=== PATIENT | male | born 1980 | race Two or more races ===

== ENCOUNTER 2021-12-25 10:12 | Emergency (ER) | payer SELFPAY ==
[~2021-12-25] VITALS: Ht 177.8 cm; Wt 100.0 kg
[2021-12-25 10:13] VITALS: BP 191/145
[2021-12-25] MEDS ORDERED: cloNIDine HCL 0.1 MG TAB PO ONE (11:30)
[2021-12-25 11:51] LABS: Eosinophils # (auto) 0.4 10 ^3/uL (0-0.8); Lymphocytes # (auto) 2.6 10 ^3/uL (0.4-5.4); Monocytes # (auto) 0.6 10 ^3/uL (0-1.3); Monocytes % (auto) 4.9 % (0.0-12.0); Red Cell Distribution Width 14.4 % (11.8-14.3); White Blood Cell 12.9 10^3/uL (4.4-10.8)
[2021-12-25 11:54] LABS: Basophils # (auto) 0.2 10 ^3/uL (0-0.2); Basophils % (auto) 1.4 % (0.0-2.0); Hemoglobin 18.5 g/dL (13.5-17.5); Lymphocytes % (auto) 20.3 % (10.0-50.0); Mean Corpuscular Hemoglobin 29.3 pg (28.0-32.0); Mean Corpuscular Hgb Conc. 33.6 g/dL (32.0-36.0); Mean Corpuscular Volume 87.1 fL (80.0-100.0); Neutrophils # (auto) 9.1 10 ^3/uL (1.6-8.6); Neutrophils % (auto) 70.4 % (37.0-80.0); Nucleated Red Blood Cells % 0.3 %; Red Blood Cells 6.32 10^6/uL (4.5-5.90)
[2021-12-25 12:15] LABS: Calcium 9.8 mg/dL (8.5-10.1); Potassium 4.7 mmol/L (3.5-5.1)
[2021-12-25 12:19] LABS: BUN/Creatinine Ratio 10.6; Bilirubin, Total 0.4 mg/dL (0.2-1.0); Total Protein 8.7 g/dL (6.4-8.2)
== END 2021-12-25 13:58 | disposition left against medical advice (07) ==
LOC: ER 10:12
DX: I16.0 Hypertensive urgency (principal); Z53.29 Procedure and treatment not carried out because of patient's decision for other reasons
CPT/HCPCS: 36415; 70450; 80053; 85025

== ENCOUNTER 2024-09-12 21:29 | Emergency (ER) | payer OTHER, MEDICAID ==
[~2024-09-12] VITALS: Ht 177.8 cm; Wt 106.6 kg
[2024-09-12 21:50] VITALS: TEMP 98.4
[2024-09-12] MEDS: cloNIDine HCL 0.1 MG TAB PO ONE (22:19)
--- NOTE | 2024-09-12 23:40 | DVH ---
EXAM: CT HEAD WITHOUT CONTRAST INDICATION: headache TECHNIQUE: CT of the head without intravenous contrast. Radiation Dose : 1. Head: CT Dose: CTDI volume is 59.37 mGy. Dose-length product is 951.64 mGy*cm The dose indicators for CT are the volume Computed Tomography (CT) Dose Index (CTDIvol) and the Dose Length Product (DLP), and are measured in units of mGy and mGy-cm, respectively. These indicators are not patient dose, but values generated from the CT scanner acquisition factors. The report includes radiation exposure data for exposures received during this examination. COMPARISON: HEAD WITHOUT CONTRAST on DOS: 12/25/21 FINDINGS: There is no evidence of acute intracranial hemorrhage, extra-axial collection, mass effect, midline s hift, herniation or hydrocephalus. The ventricles, sulci and cisterns are age appropriate. The don-white differentiation is intact. The visualized paranasal sinuses and mastoid air cells are clear. The surrounding soft tissues and osseous structures are unremarkable. IMPRESSION: 1. No acute intracranial abnormality. Radiation optimization: All CT scans at this facility use at least one of these dose optimization gerber hniques: automated exposure control mA and/or kV adjustment per patient size (includes targeted exam s where dose is matched to clinical indication) or iterative reconstruction.
--- NOTE | 2024-09-12 23:46 | DVH ---
CLINICAL INDICATION: right ankle pain TECHNIQUE: XY R ANKLE 3 VIEW Comparison: None FINDINGS/IMPRESSION: : There is no evidence of acute fracture or dislocation. Soft tissues are unremarkable.
--- NOTE | 2024-09-12 23:47 | DVH ---
CLINICAL INDICATION: right wrist pain TECHNIQUE: XY R WRIST 3+ VIEW XRAY Comparison: None FINDINGS/IMPRESSION: : Mildly displaced partially comminuted fracture of the distal 5th metacarpal. The visualized joint spaces are well preserved. Soft tissues are unremarkable.
[2024-09-13 02:23] VITALS: BP 160/120; PULSE 86; RESP 15; O2SAT 96
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
[2024-09-13] MEDS ORDERED: ACET500T58 PO (02:37)
== END 2024-09-13 02:45 | disposition home or self-care (01) ==
LOC: ER 21:29
DX: S62.396A Other fracture of fifth metacarpal bone, right hand, initial encounter for closed fracture (principal); S93.401A Sprain of unspecified ligament of right ankle, initial encounter; I10 Essential (primary) hypertension; R42 Dizziness and giddiness; V29.99XA Rider (driver) (passenger) of other motorcycle injured in unspecified traffic accident, initial encounter; Y93.89 Activity, other specified; Y92.410 Unspecified street and highway as the place of occurrence of the external cause; Y99.8 Other external cause status
CPT/HCPCS: 29125; 70450; 73110; 73610